=== PATIENT | male | born 1940 | race Caucasian/White ===

== ENCOUNTER → 2020-08-13 | Outpatient (CLI) | payer MEDICARE ==
[~2020-08-13] MED LIST: ALLO300T PO; Statin PO
== END | disposition home or self-care (01) ==
LOC: STAR 11:12
PROVIDERS: ATTEND Internal Medicine Geriatric Medicine
DX: Z01.818 Encounter for other preprocedural examination (principal); K83.1 Obstruction of bile duct; R94.31 Abnormal electrocardiogram [ECG] [EKG]; Z20.822 Contact with and (suspected) exposure to COVID-19
CPT/HCPCS: 93005; U0003; U0005

== ENCOUNTER 2020-08-19 11:47 | Day surgery (SDC) | payer MEDICARE ==
[~2020-08-19] VITALS: Ht 177.8 cm; Wt 86.5 kg
[2020-08-19 12:23] VITALS: BP 127/74
[2020-08-19] MEDS ORDERED: CHLORHEXIDINE 15 ML UDC ONE (12:27)
[2020-08-19] MEDS ORDERED: ONDANSETRON 2MG/ML, 2ML IVPush PRN (12:30)
[2020-08-19] MEDS ORDERED: ACETAMINOPHEN 325 MG TABLET PO PRN (12:30)
[2020-08-19] MEDS ORDERED: LACTATED RINGERS 1,000 ML IV SCH (12:30)
[2020-08-19] MEDS ORDERED: FENTANYL PF 100 MCG/2ML IV PRN (12:30)
[2020-08-19] MEDS ORDERED: CHLORHEXIDINE 15 ML UDC PO ONE (12:30)
[2020-08-19] MEDS ORDERED: FENTANYL PF 100 MCG/2ML ONE (12:33)
[2020-08-19] MEDS ORDERED: OMNIPAQUE 350 MG/ML, 50 ML BOTTLE ONE (12:59)
[2020-08-19] MEDS ORDERED: PROPOFOL 10 MG/ML, 20ML ONE (13:29)
[2020-08-19] MEDS ORDERED: SUCCINYLCHOLINE 20 MG/ML, 10ML ONE (13:29)
== END 2020-08-19 16:15 | disposition home or self-care (01) ==
LOC: OUT 11:47
PROVIDERS: ATTEND Internal Medicine Geriatric Medicine
DX: K80.51 Calculus of bile duct without cholangitis or cholecystitis with obstruction (principal); K29.80 Duodenitis without bleeding; Z79.899 Other long term (current) drug therapy
CPT/HCPCS: 43242; 43261; 43264; 43276; 74328; 88112; 88172; 88173; 88177; 88305; C1769; C1894; C2625; J0330; J2704; J3010; J7120; Q9967